=== PATIENT | male | born 1945 | race Caucasian/White ===

== ENCOUNTER 2016-07-08 05:06 | Day surgery (SDC) | payer OTHER ==
[2016-06-09 09:03] VITALS: BMI 29.0
--- NOTE | 2016-06-09 09:38 | PAT Medication Instructions ---
Service Date Jun 09, 2016. Current Home Medication List Acetaminophen/Diphenhydramine (Tylenol Pm), 1 TAB PO HS PRN for PRN Amlodipine (Norvasc), 10 MG PO QAM Aspirin Enteric Coated (Ecotrin Or Generic *), 81 MG PO QPM Clopidogrel (Plavix), 75 MG PO QAM Coenzyme Q10 (Ubidecarenone) (Coq10), 100 MG PO QAM Ezetimibe (Zetia), 10 MG PO QAM Fluticasone Propionate (Nasal) (Flonase Allergy Relief), 2 SPRAYS SENIA PRN Furosemide (Lasix *), 20 MG PO QAM Glucosamine Hcl-Methylsulfonyl (Msm Glucosamine), 1 CAP PO BID Lisinopril (Zestril), 40 MG PO HS Nitroglycerin (Nitrostat), 0.4 MG UT PRN Rosuvastatin Calcium (Crestor), 10 MG PO Q2D [Magnesium], 1 TAB PO Q2D [Potassium], 1 TAB PO Q2D Medication Instructions For Your Scheduled Surgery Clopidogrel (Plavix), 75 MG PO QAM (hold 5 days prior to surgery per cardio) ( last dose will be 07/02/16)) Nitroglycerin (Nitrostat), 0.4 MG UT PRN (if needed) - Hold the following medications 10 days prior to surgery: Glucosamine Hcl-Methylsulfonyl (Msm Glucosamine), 1 CAP PO BID Coenzyme Q10 (Ubidecarenone) (Coq10), 100 MG PO QAM - Hold the following medications evening prior to surgery: Lisinopril (Zestril), 40 MG PO HS - Hold the following medications the morning of surgery: Magnesium 1 TAB PO Q2D Potassium 1 TAB PO Q2D Furosemide (Lasix *), 20 MG PO QAM - Take the following medications the morning of surgery with a sip of water: Fluticasone Propionate (Nasal) (Flonase Allergy Relief), 2 SPRAYS SENIA PRN ( if needed) Ezetimibe (Zetia), 10 MG PO QAM Amlodipine (Norvasc), 10 MG PO QAM - Take the following medications as scheduled the night before surgery: Rosuvastatin Calcium (Crestor), 10 MG PO Q2D Aspirin Enteric Coated (Ecotrin Or Generic *), 81 MG PO QPM Acetaminophen/Diphenhydramine (Tylenol Pm), 1 TAB PO HS PRN for PRN If you have any questions please call us at [phone] or [phone] ( Gaby) or [phone]
[2016-06-09 10:17] LABS: COMPLETE YES; EOS % 2.4 %; HEMATOCRIT 47.3 % (42-52); IG% 0.2 %; LYMPH % 34.6 %; LYMPH ABS # 1.57 K/uL (1.2-3.4); MEAN CELL VOLUME 89.9 fL (80-100); MEAN CORPUSCULAR HEMOGLOBIN 31.6 pg (25-34); MEAN CORPUSCULAR HGB CONC 35.1 g/dl (32-36); MEAN PLATELET VOLUME 9.7 fL (7.4-10.4); MONO % 5.9 %; NEUT % 56.9 %; PLATELET COUNT 145 K/uL (130-400); RED BLOOD COUNT 5.26 M/uL (4.7-6.1); WHITE BLOOD COUNT 4.54 K/uL (4.8-10.8)
[2016-06-09 10:24] LABS: BUN/CREATININE RATIO 11.5 (10-20); CALCIUM 8.6 mg/dl (8.5-10.1); CREATININE 1.1 mg/dl (0.60-1.40); POTASSIUM 4.2 mmol/L (3.5-5.1)
[~2016-07-08] VITALS: Ht 185.4 cm; Wt 102.0 kg
[~2016-07-08 05:06] MED LIST: AMLO-114 PO; ASPEC81 PO; CLOP1TAB15 PO; COEN100C7 PO; CRS/10 PO; DIPH-437 PO; EZET10TA63 PO; FLUT0.15 NAE; GLUCCAP5 PO; LISI40TA PO; LSX20 PO; MAGNESIUM PO; NTRGSL/4 UT; POTASSIUM PO
[2016-07-08 05:42] VITALS: BP 133/82; PULSE 58; TEMP 37.2; O2SAT 97; Ht 185.4 cm; Wt 102.0 kg
[2016-07-08] MEDS ORDERED: LACTATED RINGER'S 1000ML 1,000 ML IV SCH (06:00)
[2016-07-08] MEDS ORDERED: CEFAZOLIN 2000 MG/60 ML D5W IV SCH (06:00)
[2016-07-08] MEDS ORDERED: FENTANYL CITRATE INJ 50 MCG/1 ML 2 ML VIAL ONE (06:37)
[2016-07-08] MEDS ORDERED: MIDAZOLAM HCL 1 MG/ML 2ML VIAL ONE ×2 (06:37→07:24)
[2016-07-08] MEDS ORDERED: BACITRACIN OINT 15 GM TUBE ONE (06:49)
[2016-07-08] MEDS ORDERED: BUPIVACAINE 0.5 % 5 MG/1 ML MPF 30ML VIAL ONE ×2 (06:49→07:44)
[2016-07-08] MEDS ORDERED: LIDOCAINE HCL 1% 20 ML VIAL ONE ×2 (06:49→07:44)
--- NOTE | 2016-07-08 07:14 | History & Physical Bridge Note ---
H&P Re-Evaluation Bridge Note: I have examined the patient, reviewed the History & Physical and in the interval since the performance of the History & Physical I have noted the following changes of clinical significance: No changes noted
[2016-07-08] MEDS ORDERED: ONDANSETRON INJ 2 MG/ML 2 ML VIAL ONE (08:13)
[2016-07-08] MEDS ORDERED: PROPOFOL IV EMULSION 10 MG/ML 20 ML VIAL IV ONE (08:13)
[2016-07-08] MEDS ORDERED: LIDOCAINE HCL 2% 2 ML VIAL (20MG/ML) ONE (08:13)
[2016-07-08] MEDS ORDERED: OXYC-57 PO (08:28)
--- NOTE | 2016-07-08 08:28 | [facility] Post Operative Brief Note ---
Immediate Operative Summary Operative Date July 08, 2016. Pre-Operative Diagnosis Left Inguinal Hernia Post-Operative Diagnosis Left Inguinal Hernia Procedure(s) Performed Left Open Repair Inguinal Hernia Repair with Mesh Surgeon Dr. Maravilla Dietetic Tech Surgeon(s) Migdalia Saldaña-PAC Estimated Blood Loss 5 ml Findings left direct inguinal hernia Fluids (cc crystalloids) 600ml Specimens None Drains none Anesthesia seadtion + local Complication(s) None Disposition Recovery Room / PACU
[2016-07-08] MEDS ORDERED: ATROPINE SULFATE 0.1 MG/ML 5ML SYR IV PRN (08:30)
[2016-07-08] MEDS ORDERED: HYDROmorphone INJ 1 MG/ML SYR IV PRN (08:30)
[2016-07-08] MEDS ORDERED: NALOXONE HCL 0.4 MG/1 ML VIAL/CARP IV PRN (08:30)
[2016-07-08] MEDS ORDERED: EpHEDrine SULFATE INJ 50 MG/ML AMP IV PRN (08:30)
[2016-07-08] MEDS ORDERED: FLUMAZENIL 0.1 MG/1 ML 10 ML VIAL IV PRN (08:30)
[2016-07-08] MEDS ORDERED: ONDANSETRON INJ 2 MG/ML 2 ML VIAL IV PRN ×2 (08:30→08:45)
[2016-07-08] MEDS ORDERED: PROMETHAZINE HCL INJ 12.5 MG in SODIUM CHLORIDE 0.9% 50ML 50 ML IV PRN (08:30)
[2016-07-08] MEDS ORDERED: LABETALOL HCL IV 5 MG/ML 20ML IV PRN (08:30)
--- NOTE | 2016-07-08 08:33 | Discharge Instructions ---
Discharge Instructions Date of Service July 08, 2016. Admission Reason for Admission: Left Inguinal Hernia Discharge Discharge Diagnosis / Problem: Left inguinal hernia, s/p left inguinal hernia repair with mesh Discharge Goals Goal(s): Decrease discomfort Activity Recommendations Activity Limitations: as noted below No strenuous activity or heavy lifting over 10 pounds or 4-6 weeks Walking is encouraged to prevent blood clots No showering for 4 days, you may remove the dressing and then shower No submerging incision underwater for 2 weeks [address] while taking narcotic pain medication . Instructions / Follow-Up Instructions / Follow-Up You may shower in 4 days, sponge bath in meantime and you can wash hair. Remove dressing in 4 days and then shower Follow-up with Dr. Maravilla in 1 week, call office at [phone] if you do not already have an appointment You may want to take an OTC stool softener while you are taking narcotic as it can cause constipation Current Hospital Diet Patient's current hospital diet: Discharge Diet Recommended Diet: Regular Diet Procedures Procedures Performed: Left Open Repair Inguinal Hernia Repair with Mesh Pending Studies Studies pending at discharge: no Medical Emergencies . Who to Call and When: Medical Emergencies: If at any time you feel your situation is an emergency, please call 911 immediately. . Non-Emergent Contact Non-Emergency issues call your: Primary Care Provider, Surgeon Call Non-Emergent contact if: you have a fever, temperature is above 101.5, your pain is not controlled, your pain is worsening, wound has increased drainage, wound has increased redness, wound has increased pain . "Provider Documentation" section prepared by Migdalia Saldaña. . VTE Core Measure Inpt VTE Proph given/why not?: SCD's [place] Drug Monitoring Program Search Results: patient reviewed within database, no issues identified
--- NOTE | 2016-07-08 08:34 | Anesthesiology Progress Note ---
Anesthesia Post Op Note Date & Time July 08, 2016 at 08:34 Vital Signs Pain Intensity: 0 Vital Signs Past 12 Hours Date Time Temp Pulse Resp B/P Pulse Ox O2 Delivery O2 Flow Rate FiO2 07/08/16 05:42 37.2 58 20 133/82 97 Room Air Notes Mental Status: alert / awake / arousable, participated in evaluation Pt Amnestic to Procedure: Yes Nausea / Vomiting: adequately controlled Pain: adequately controlled Airway Patency, RR, SpO2: stable & adequate BP & HR: stable & adequate Hydration State: stable & adequate Anesthetic Complications: no major complications apparent
[2016-07-08] MEDS ORDERED: OXYCODONE/ACETAMINOPHEN 5-325 TAB PO PRN (08:45)
[2016-07-08] MEDS ORDERED: MoRPHine SULFATE 2 MG/ML CARP IV PRN (08:45)
[2016-07-08 09:05] VITALS: BP 106/67; PULSE 50; TEMP 36.3; O2SAT 96
[2016-07-08 09:35] VITALS: BP 113/65; PULSE 49; TEMP 36; O2SAT 98
[2016-07-08] MEDS ORDERED: OXYCODONE/ACETAMINOPHEN 5-325 TAB ONE (09:42)
[2016-07-08 09:50] VITALS: BP 111/62; PULSE 52; TEMP 36.2; O2SAT 98
--- NOTE | 2016-07-08 10:42 | OPERATIVE REPORT ---
DATE OF OPERATION: 07/08/2016 PREOPERATIVE DIAGNOSIS: Left inguinal hernia. POSTOPERATIVE DIAGNOSIS: Same. OPERATION: Open repair left inguinal hernia with mesh. SURGEON: Sandy Maravilla MD ANESTHESIA: Conscious sedation plus local. FINDING: Left direct inguinal hernia. ESTIMATED BLOOD LOSS: About 5 mL. COMPLICATIONS: None. INDICATIONS FOR THE PROCEDURE: This is a 70-year-old gentleman who presented with the left inguinal hernia with bulging pain and the patient required to do open repair of the left inguinal hernia with mesh. I did talk to the patient about the benefit and risk got in the procedure. I indicated the risks may include but not limited such as bleeding, infection, hernia recurrence, chronic pain, myocardial infarction, stroke, even . The patient understands and he signed informed consent. I answered all questions. DETAILS OF PROCEDURE: We brought the patient to the OR, and put the patient in the supine position. The patient received SCD on bilateral legs to prevent DVT. Also, the patient received 2 grams Ancef IV for prophylactic antibiotic. The patient received conscious sedation by the anesthesiology. The patient's lower abdomen was prepped and draped in routine sterile fashion. After a timeout, I injected local anesthesia by using 0.5% lidocaine mixed with 0.25% Marcaine on the left-sided inguinal area. Then I made about a 4 cm incision on the left side inguinal area. I opened the subcutaneous layer to expose the external fascia and opened the external fascia to the external ring mobilizing the cord structure and then we found the patient has a direct hernia. We chose a large plug with mesh and then we used the plug to block direct hernia and then I used the mesh to reinforce the posterior wall by using #1 and 2-0 Prolene continuous running suture of the mesh to the lateral inguinal ligament and medially to the conjoined tendon. Two sutures meeting together and tied and the mesh seated nicely with no tension. I now closed the external fascia by using 2-0 Vicryl continuous running, closed subcutaneous layer by using 2-0 Vicryl, and closed skin by using 4-0 Vicryl. Then we put the dressing on. The patient tolerated the procedure well. After the procedure, the patient transferred to recovery room in stable condition. All the instrument, needle and sponge counts correct x2 at the end of the case. After the procedure, I did talk to the patient's family member about the OR finding and procedure we did, they understand. Also, I gave them the postop care instruction. We will follow up the patient in 1 week. I attest to the content of the Intraoperative Record and any orders documented therein. Any exceptio ns are noted below.
[2016-07-09] MEDS ORDERED: CEFAZOLIN IV 2,000 MG/60 ML D5W IV ONE (06:00)
== END 2016-07-08 10:00 | disposition home or self-care (01) ==
LOC: C.ACU 05:06
PROVIDERS: ATTEND Surgery
DX: K40.90 Unilateral inguinal hernia, without obstruction or gangrene, not specified as recurrent (principal); E78.00 Pure hypercholesterolemia, unspecified; E66.9 Obesity, unspecified; I10 Essential (primary) hypertension; Z87.891 Personal history of nicotine dependence; M51.36 Other intervertebral disc degeneration, lumbar region; I25.2 Old myocardial infarction; E78.5 Hyperlipidemia, unspecified; G25.81 Restless legs syndrome; I25.10 Atherosclerotic heart disease of native coronary artery without angina pectoris; K21.9 Gastro-esophageal reflux disease without esophagitis; Z85.828 Personal history of other malignant neoplasm of skin; Z80.0 Family history of malignant neoplasm of digestive organs; Z83.3 Family history of diabetes mellitus; Z82.49 Family history of ischemic heart disease and other diseases of the circulatory system; Z82.3 Family history of stroke; Z82.5 Family history of asthma and other chronic lower respiratory diseases

== ENCOUNTER 2017-03-13 03:05 | Emergency (ER) | payer OTHER ==
[~2017-03-13] VITALS: Ht 188 cm; Wt 104.4 kg
[2017-03-13 03:11] VITALS: BP 145/99; PULSE 74; TEMP 36.7; O2SAT 97; Ht 188 cm; Wt 104.4 kg
[2017-03-13] MEDS ORDERED: OXYCODONE IR HOME PACK PO ONE ×2 (03:21→03:30)
--- NOTE | 2017-03-13 03:22 | EMERGENCY ROOM VISIT NOTE ---
History First contact with patient: 03:14 Chief Complaint: DENTAL PAIN Stated Complaint: TOOTHACHE Nursing Triage Summary: Pt had root canal at 1330 today on middle lower tooth. Pt states pt has been getting worse and worsen and he has taken 6 tylenol without relief. Reports 9/ 10 pain. Attempted to call surgeon's emergency number without answer. Requesting pain medication until he can follow up with surgeon. History of Present Illness The patient is a 71 year old male who presents to the Emergency Room with complaints of dental pain. The patient states that he had a root canal yesterday afternoon on his lower left front tooth. He states this was done because the nerve was exposed. The root canal was done by Dr. Dhaliwal in [place]. He states that he was told if he had pain he should call the office. He called and received no answer. He states the pain as throbbing and rates the discomfort a 9/10. He has taken 6 Tylenol without relief. He denies any facial swelling or fevers. Review of Systems A complete 10 point review of systems was reviewed with the patient with pertinent positives and negatives as per history of present illness. All else were negative. Past Medical/Surgical History Medical Problems: (1) Asthma (2) GERD (gastroesophageal reflux disease) (3) High cholesterol (4) HTN (hypertension) Social History Smoking Status: Former Smoker Marital Status: Occupation Status: retired Current/Historical Medications Scheduled Amlodipine (Norvasc), 10 MG PO QAM Aspirin Enteric Coated (Ecotrin Or Generic *), 81 MG PO QPM Clopidogrel (Plavix), 75 MG PO QAM Coenzyme Q10 (Ubidecarenone) (Coq10), 100 MG PO QAM Ezetimibe (Zetia), 10 MG PO QAM Fluticasone Propionate (Nasal) (Flonase Allergy Relief), 2 SPRAYS SENIA PRN Furosemide (Lasix *), 20 MG PO QAM Glucosamine Hcl-Methylsulfonyl (Msm Glucosamine), 1 CAP PO BID Lisinopril (Zestril), 40 MG PO HS Nitroglycerin (Nitrostat), 0.4 MG UT PRN Rosuvastatin Calcium (Crestor), 10 MG PO Q2D [Magnesium], 1 TAB PO Q2D [Potassium], 1 TAB PO Q2D Scheduled PRN Acetaminophen/Diphenhydramine (Tylenol Pm), 1 TAB PO HS PRN for PRN Physical Exam Vital Signs Date Time Temp Pulse Resp B/P (MAP) Pulse Ox O2 Delivery O2 Flow Rate FiO2 03/13/17 03:11 36.7 74 18 145/99 97 Room Air Physical Exam VITALS: Vitals are noted on the nurse's note and reviewed by myself. Vital signs stable. GENERAL: This is a 71-year-old male, in no acute distress, uncomfortable appearing, well-developed well-nourished. MOUTH: Mucous membranes moist. There is evidence of recent root canal of the left lower front tooth. There is mild surrounding erythema. No significant swelling. No tenderness to the floor of the mouth. NECK: Supple without nuchal rigidity. No lymphadenopathy. NEURO: Patient was alert and oriented to person place and time. Medical Decision & Procedures Medications Administered Medications (Trade) Dose Ordered Sig/Gareth Route Start Time Stop Time Status Last Admin Dose Admin Oxycodone HCl (Roxicodone Immediate Rel 5MG Home Pack) 1 homepack UD ONCE PO 03/13/17 03:30 03/13/17 03:31 DC 03/13/17 03:24 1 HOMEPACK Medical Decision Differential diagnosis includes dental caries, X angina, dental infection, dental abscess, among others. The patient was evaluated as above. He has pain after a root canal today. There is no evidence of infection on exam. No evidence of Jair angina. Patient was given a home pack of OxyIR. He will call his surgeon in the morning. He verbalized understanding of my assessment and treatment plan and was discharged home in good condition. The patient was independently evaluated by Dr. Belle, ED attending physician , who agreed with my assessment and treatment plan. [place] Drug Monitoring [place] Search Results: patient reviewed within database, no issues identified Medication Reconcilliation Current Medication List: was personally reviewed by me Blood Pressure Screening Patient's blood pressure: Elevated blood pressure Blood pressure disposition: Elevated BP felt to be situational Impression Primary Impression: Dentalgia Departure Information Dispostion Home / Self-Care Condition GOOD Referrals No Doctor, Assigned (PCP) Patient Instructions My [facility] Additional Instructions You have been given OxyIR to be used for pain control. Take 1-2 tablets every 4 -6 hours as needed for pain. This is a narcotic medication. You cannot drive or consume alcohol while on this medicine. This medicine should only be used for pain that cannot be controlled with [id number] pain medicines. Follow-up with your surgeon tomorrow. Return to the emergency department for any worsening or new/concerning symptoms.
--- NOTE | 2017-03-13 06:28 | EMERGENCY ROOM VISIT NOTE ---
ED Visit Note First contact with patient: 03:14 I have personally evaluated and examined this patient. I agree with assessment and plan of Georgia Nix PA-C. Moderate dental pain after root canal without evidence abscess nor ludwigs.
== END 2017-03-13 03:30 | disposition home or self-care (01) ==
LOC: C.EDB 03:07
DX: K08.89 Other specified disorders of teeth and supporting structures (principal); J45.909 Unspecified asthma, uncomplicated; E78.5 Hyperlipidemia, unspecified; I10 Essential (primary) hypertension; K21.9 Gastro-esophageal reflux disease without esophagitis; Z79.82 Long term (current) use of aspirin; Z87.891 Personal history of nicotine dependence